=== PATIENT | female | born 1960 | race Native Hawaiian/Other Pacific Islander ===

== ENCOUNTER 2019-03-06 07:41 | Day surgery (SDC) | payer OTHER ==
[~2019-03-06] VITALS: Ht 30.5 cm; Wt 0.5 kg
== END 2019-03-06 08:45 | disposition home or self-care (01) ==
LOC: OR 07:41
PROC: 3E0R33Z Introduction of Anti-inflammatory into Spinal Canal, Percutaneous Approach (ICD-10-PCS; principal; 2019-03-06)
PROC: B01BYZZ Fluoroscopy of Spinal Cord using Other Contrast (ICD-10-PCS; 2019-03-06)
DX: M51.16 Intervertebral disc disorders with radiculopathy, lumbar region (principal)
CPT/HCPCS: J1020